=== PATIENT | female | born 1965 ===

== ENCOUNTER → 2018-10-03 00:04 | Outpatient (ROUT) | payer OTHER, SELFPAY ==
[2018-10-03 02:03] LABS: HEMOLYSIS < 15 (0-50)
[2018-10-03 02:12] LABS: Add Manual Diff / Slide Review NO; Basophils Absolute Auto 0 /uL (0-100); Basophils Percent Auto 1.4 % (0-2); Eosinophils Absolute Auto 0 /uL (0-450); Eosinophils Percent Auto 1.5 % (2-4); Hematocrit 40.6 % (36-46); Hemoglobin 13.7 g/dL (12.0-16.0); Lymphocytes Absolute Auto 1100 /uL (1100-4500); Lymphocytes Percent Auto 34.6 % (25-40); Mean Corpuscular HGB Conc 33.6 % (30-36); Mean Corpuscular Hemoglobin 31.7 PG (26-34); Mean Corpuscular Volume 94.2 fL (80-100); Monocytes Absolute Auto 200 /uL (0-900); Monocytes Percent Auto 7.1 % (3-14); Neutrophils Absolute Auto 1800 /uL (1500-7000); Neutrophils Percent Auto 55.4 % (50-75); Platelet Count 187 X10^3/uL (150-400); Red Blood Cell Count 4.31 X10^6/uL (4.0-5.2); Red Cell Distribution Width 14.1 % (11.6-14.8); White Blood Cell Count 3.3 X10^3/uL (4.5-11.0)
[2018-10-03 02:18] LABS: Alanine Aminotransferase 32 IU/L (9-52); Albumin 4.2 g/dL (3.5-5.0); Albumin Globulin Ratio 1.4 (1.0-2.8); Alkaline Phosphatase 93 U/L (38-126); Aspartate Aminotransferase 33 IU/L (14-36); BUN Creatinine Ratio 23.3 (6-22); Bilirubin Total 0.7 mg/dL (0.2-1.3); Blood Urea Nitrogen 14 mg/dL (7-17); Calcium 9.6 mg/dL (8.4-10.2); Carbon Dioxide 31 mmol/L (22-32); Chloride 104 mmol/L (98-107); Cholesterol 250 mg/dL (140-199); Estimated Glomerular Filt Rate > 60.0 mL/min (>60); Globulin 2.9 g/dL (1.7-4.1); Glucose 83 mg/dL (70-100); HDL Cholesterol 82 mg/dL (40-60); LDL Cholesterol Calculated 138 mg/dL (<100); Potassium 4.3 mmol/L (3.4-5.1); Sodium 141 mmol/L (137-145); Total Protein 7.1 g/dL (6.3-8.2); Triglycerides 150 mg/dL (35-150)
[2018-10-03 02:45] LABS: Ferritin 88.3 ng/mL (11.1-264)
[2018-10-03 03:30] LABS: HEMOLYSIS < 15 (0-50); Iron 170 ug/dL (37-170)
[2018-10-03 03:47] LABS: Percent Iron Saturation 53 % (15-50); Total Iron Binding Capacity 322 ug/dL (265-497); Transferrin 253 mg/dL (206-381)
[2018-10-03 03:53] LABS: Free T4, Direct Thyroxine 0.92 ng/dL (0.78-2.19); Triiodothryronine T3 Uptake 28.3 % (23.5-40.5)
[2018-10-03 04:47] LABS: Folate > 20.0 ng/mL (2.76-20.0); Vitamin B12 699 pg/mL (239-931)
[2018-10-05 16:27] LABS: Hepatitis A Antibody IgM NONREACTIVE (NONREACTIVE); Hepatitis Acute Panel Interp 0.06; Hepatitis B Core Antibody IgM NONREACTIVE (NONREACTIVE); Hepatitis B Surface Antigen NONREACTIVE (NONREACTIVE); Hepatitis C Antibody NONREACTIVE
[2018-10-06 16:16] LABS: Anti Thyroglobulin Antibody 42 IU/mL (< 2); Thyroid Peroxidase Antibodies 1 IU/mL (< 9)
[2018-10-07 15:12] LABS: Triiodothyronine T3 Total 100 ng/dL (76-181)
== END ==
PROVIDERS: Visit Provider Family Medicine
DX: Z00.00 Encounter for general adult medical examination without abnormal findings (principal); E03.9 Hypothyroidism, unspecified; R94.5 Abnormal results of liver function studies; R53.1 Weakness; E78.5 Hyperlipidemia, unspecified; D50.9 Iron deficiency anemia, unspecified; R53.83 Other fatigue
CPT/HCPCS: 36415; 80053; 80061; 80074; 82607; 82728; 82746; 83540; 83550; 84439; 84443; 84479; 84480; 84481; 85025; 86376; 86800